=== PATIENT | male | born 1970 | race Hispanic/Latino ===

== ENCOUNTER 2024-12-21 08:45 | Inpatient (IN) | payer SELFPAY ==
[~2024-12-21] VITALS: Ht 165.1 cm; Wt 75.4 kg
[2024-12-21] MEDS: ONDANSETRON HCL INJ 2MG/ML 2ML 2 MG/ML VIAL IV STA (09:32)
[2024-12-21] MEDS: FAMOTIDINE 20 MG/2 ML VIAL IV STA (09:32)
[2024-12-21] MEDS: SODIUM CHLORIDE 0.9% 1000ML 1,000 ML IV SCH ×2 (09:32→17:15)
[2024-12-21] MEDS: Morphine 4mg INJECTION 4 MG/ML INJ IV ONE (09:33)
[2024-12-21] MEDS: KETOROLAC TROMETHAMINE 30 MG/ML VIAL IV STA (10:42)
[2024-12-21 11:55] VITALS: PULSE 75; RESP 18; TEMP 98.5
[2024-12-21] MEDS ORDERED: ALBUTEROL/IPRATROPIUM 3 ML NEB NEB PRN (13:00)
[2024-12-21] MEDS ORDERED: POTASSIUM CHLORIDE 20 MEQ TAB CR PO PRN (13:00)
[2024-12-21] MEDS ORDERED: SIMETHICONE 80 MG CHEW PO PRN (13:00)
[2024-12-21] MEDS ORDERED: DEXTROSE 50% SYRINGE 50 ML IV PRN (13:00)
[2024-12-21] MEDS ORDERED: DIPHENHYDRAMINE HCL 25 MG CAP PO PRN (13:00)
[2024-12-21] MEDS ORDERED: HYDRALAZINE HCL 20 MG/ML VIAL IV PRN (13:00)
[2024-12-21] MEDS ORDERED: BENZONATATE 100 MG CAP PO PRN (13:00)
[2024-12-21] MEDS ORDERED: LIDOCAINE 4% PATCH TP PRN (13:00)
[2024-12-21] MEDS ORDERED: DOCUSATE SODIUM 100 MG CAP PO PRN (13:00)
[2024-12-21] MEDS ORDERED: IOPAMIDOL 370 MG/ML 100 ML INFUS..BTL INJ ONE (14:29)
[2024-12-21] MEDS ORDERED: NO HOME MEDS (14:44)
[2024-12-21 15:00] VITALS: BP 140/84; PULSE 75; RESP 13; TEMP 98.2; O2SAT 100
[2024-12-21 15:13] VITALS: BP 140/84; PULSE 75; RESP 16; TEMP 98.2; O2SAT 100
[2024-12-21] MEDS: Morphine 4mg INJECTION 4 MG/ML INJ IV PRN (15:24)
[2024-12-21] MEDS: ONDANSETRON HCL INJ 2MG/ML 2ML 2 MG/ML VIAL IV PRN (15:24)
[2024-12-21 15:38] VITALS: PULSE 74; RESP 18; O2SAT 98
[2024-12-21 20:00] VITALS: BP 142/82; PULSE 87; RESP 18; TEMP 100.8; O2SAT 97
[2024-12-21] MEDS ORDERED: MELATONIN 5 MG TABLET PO PRN (21:00)
[2024-12-21 21:10] VITALS: PULSE 87; RESP 18; O2SAT 98
[2024-12-21] MEDS ORDERED: PIPERACILLIN/TAZOBACTAM 4.5 GM in SODIUM CHLORIDE 0.9% 100 ML IV SCH (22:00)
[2024-12-22] VITALS (11 sets, daily range): BP systolic 107–146; BP diastolic 62–80; PULSE 79–95; RESP 18; TEMP 97.9–101.2; O2SAT 96–100
[2024-12-22] MEDS: ACETAMINOPHEN 325 MG TAB PO PRN (05:56)
[2024-12-22] MEDS: PANTOPRAZOLE SOD 40 MG TABEC PO SCH (07:30)
[2024-12-22 08:12] LABS: BASOPHILS % 0.1 % (0.0-1.0); EOSINOPHILS % 0.2 % (0.0-6.0); LYMPHOCYTES % 5.6 % (18.0-39.1); MONOCYTES % 7.7 % (4.4-11.3); NEUTROPHILS % 85.6 % (38.7-80.0); RED CELL DISTRIBUTION WIDTH 12.5 % (11.7-14.4)
[2024-12-22 09:05] LABS: EST GLOMERULAR FILTRATION RATE 101.0 ML/MIN (>=60)
[2024-12-22] MEDS ORDERED: FENTANYL CITRATE/PF 100MCG/2 ML INJ ONE ×2 (11:59→12:34)
[2024-12-22] MEDS ORDERED: MIDAZOLAM HCL 2 MG/2 ML VIAL ONE (12:00)
[2024-12-22] MEDS ORDERED: ONDANSETRON HCL INJ 2MG/ML 2ML 2 MG/ML VIAL ONE (12:00)
[2024-12-22] MEDS ORDERED: PROPOFOL IV EMULSION 10 MG/ML 20 ML VIAL ONE (12:00)
[2024-12-22] MEDS ORDERED: LIDOCAINE HCL 2% LOCAL INJ 5 ML SDV VIAL INJ ONE (12:00)
[2024-12-22] MEDS ORDERED: ROCURONIUM BROMIDE 1 ML IV ONE (12:00)
[2024-12-22] MEDS ORDERED: DEXAMETHASONE SOD PHOS INJ 4 MG/ML SDV ONE (12:00)
[2024-12-22] MEDS ORDERED: PHENYLEPHRINE HCL 1% 10 MG/ML VIAL ONE (12:24)
[2024-12-22] MEDS ORDERED: SUGAMMADEX SODIUM 200 MG/2 ML VIAL IV ONE (13:18)
[2024-12-22] MEDS ORDERED: KETOROLAC TROMETHAMINE 30 MG/ML VIAL IV PRN (14:00)
[2024-12-22] MEDS: HYDROCODONE/APAP 7.5MG-325MG 1 EA TAB PO PRN (17:19)
[2024-12-23] VITALS (10 sets, daily range): BP systolic 101–131; BP diastolic 63–80; PULSE 75–93; RESP 18–22; TEMP 97.5–98.5; O2SAT 94–99
[2024-12-23 06:30] LABS: BASOPHILS % 0.1 % (0.0-1.0); EOSINOPHILS % 0.0 % (0.0-6.0); LYMPHOCYTES % 6.0 % (18.0-39.1); MONOCYTES % 6.0 % (4.4-11.3); NEUTROPHILS % 87.4 % (38.7-80.0); RED CELL DISTRIBUTION WIDTH 12.7 % (11.7-14.4)
[2024-12-23 10:26] LABS: EST GLOMERULAR FILTRATION RATE 107.0 ML/MIN (>=60)
[2024-12-24] VITALS: BP 128/82; PULSE 82; RESP 16; TEMP 98; O2SAT 98
[2024-12-24 06:16] VITALS: BP 136/92; PULSE 83; RESP 18; TEMP 98.2; O2SAT 96
[2024-12-24 06:26] LABS: BASOPHILS % 0.1 % (0.0-1.0); EOSINOPHILS % 1.7 % (0.0-6.0); LYMPHOCYTES % 21.7 % (18.0-39.1); MONOCYTES % 7.5 % (4.4-11.3); NEUTROPHILS % 68.6 % (38.7-80.0); RED CELL DISTRIBUTION WIDTH 12.7 % (11.7-14.4)
[2024-12-24 07:03] LABS: EST GLOMERULAR FILTRATION RATE 109.0 ML/MIN (>=60)
[2024-12-24 07:05] VITALS: PULSE 77; RESP 22; O2SAT 99
[2024-12-24 09:08] LABS: BASOPHILS % 0.1 % (0.0-1.0); EOSINOPHILS % 1.8 % (0.0-6.0); LYMPHOCYTES % 17.6 % (18.0-39.1); MONOCYTES % 7.6 % (4.4-11.3); NEUTROPHILS % 72.5 % (38.7-80.0); RED CELL DISTRIBUTION WIDTH 12.8 % (11.7-14.4)
[2024-12-24] MEDS ORDERED: IOPAMIDOL 370 MG/ML 100 ML INFUS..BTL INJ ONE ×2 (09:33→14:00)
[2024-12-24 09:34] LABS: EST GLOMERULAR FILTRATION RATE 104.0 ML/MIN (>=60)
[2024-12-24 12:53] VITALS: BP 136/75; PULSE 85; RESP 18; TEMP 98.1; O2SAT 100
[2024-12-24 13:18] VITALS: BP 129/76; PULSE 87; RESP 18; TEMP 97.9; O2SAT 98
[2024-12-24 17:00] VITALS: BP 151/93; PULSE 76; RESP 18; TEMP 98; O2SAT 100
[2024-12-24] MEDS ORDERED: ENOXAPARIN SOD INJ 40 MG/0.4 ML SYR SC SCH (17:00)
== END 2024-12-24 17:59 | disposition home or self-care (01) | DRG 853 ==
LOC: FSED 09:04 → ERHOLD 11:53 → MED/SURG2 14:11
PROVIDERS: ADMIT Internal Medicine; ATTEND Internal Medicine
PROC: 3E0333Z Introduction of Anti-inflammatory into Peripheral Vein, Percutaneous Approach (ICD-10-PCS; 2024-12-21)
PROC: 0FT44ZZ Resection of Gallbladder, Percutaneous Endoscopic Approach (ICD-10-PCS; principal; 2024-12-22 12:12)
DX: A41.9 Sepsis, unspecified organism (principal); I81 Portal vein thrombosis; K80.00 Calculus of gallbladder with acute cholecystitis without obstruction; K82.A1 Gangrene of gallbladder in cholecystitis; K62.89 Other specified diseases of anus and rectum
CPT/HCPCS: 36415; 74177; 76705; 80048; 80053; 80076; 81003; 83690; 84484; 85025; 88304; 93005; 94799; 99284; C1766; J1100; J1308; J1650; J1885; J2003; J2250; J2270; J2371; J2405; J2470; J2543; J7030; J7050; Q9967